=== PATIENT | female | born 1990 | race Caucasian/White ===

== ENCOUNTER 2018-01-27 15:20 | Observation (INO) ==
[2018-01-27 16:17] LABS: Bilirubin,Urine Negative (Negative); Blood,Urine Negative (Negative); Clarity,Urine Cloudy (Clear); Color,Urine Dark Yellow (Yellow); Glucose,Urine (UA) Normal (Normal); Ketones,Urine Negative (Negative); Leukocyte Esterase,Urine Negative (Negative); Nitrite,Urine Negative (Negative); PH,Urine 6.5 pH Units (5.0-8.0); Protein,Urine Trace mg/dL (Neg-Trace); Specific Gravity,Urine > 1.030 (1.010-1.025); Urobilinogen,Urine Normal (Normal)
[2018-01-27 16:21] LABS: Bacteria,Urine None Seen per hpf (None-Few); Hyaline Casts,Urine None Seen per lpf (None-Few); Squamous Epithelial Cell,Urine Many per lpf (None-Few)
[2018-01-27 16:39] LABS: Amphetamine Screen,Urine Negative ng/mL (Cutoff=1000); Barbiturate Screen,Urine Negative ng/mL (Cutoff=200); Benzodiazepines Screen,Urine Negative ng/mL (Cutoff=200); Cannabinoid Screen,Urine Positive ng/mL (Cutoff = 50); Cocaine Screen,Urine Negative ng/mL (Cutoff= 300); Opiate Screen,Urine Negative ng/mL (Cutoff=300); Phencyclidine Screen,Urine Negative ng/mL (Cutoff=25)
--- NOTE | 2018-01-27 16:50 | OB/GYN Progress Note ---
Date of Encounter: 01/27/18 Time of Encounter: 16:48 - Assessment and Plan (1) 23 weeks gestation of Current Visit: Yes Status: Acute (2) Abdominal cramping affecting , antepartum Current Visit: Yes Status: Acute Doppler for FHR UA - SG >1.030 Increase hydration Follow up with OB as scheduled OK to discharge home Subjective - Subjective Principal diagnosis: abdominal cramping in Interval history: Ms. Peterosn presents with c/o abdominal cramping since Saturday. She reports good FM and denies vb, lof. She also states she does not routinely drink water, having had only 2 glasses of water in the past week. She prefers coffee, tea, and gatorade. Last intercourse was many weeks ago. Antepartum ROS: new complaints, movement normal, contractions, no loss of fluid, no vaginal bleeding Objective - Vital Signs Vital Signs: Intake and Output 01/27/18 01/27/18 01/27/18 07:59 15:59 23:59 Other: Weight 70.4 kg Patient Weight 01/27/18 23:59 Weight 70.4 kg - Exam FHR: auscultation normal FHR comments: FHR ~135 No toco activity Auscultation: bilateral: normal Abdomen: Present: normal appearance, soft, gravid Uterus: Present: normal, firm - Labs Labs: Abnormal lab results Urine Clarity Cloudy (Clear) A 01/27/18 16:00 Ur Specific [place] > 1.030 (1.010-1.025) H 01/27/18 16:00 Urine Microscopic RBC 5-15 per hpf (0-3) H 01/27/18 16:00 Urine Microscopic WBC 3-5 per hpf (0-3) H 01/27/18 16:00 Ur Squamous Epith Cells Many per lpf (None-Few) H 01/27/18 16:00 U Marijuana (THC) Screen Positive ng/mL (Cutoff = 50) H 01/27/18 16:00
== END 2018-01-27 17:03 | disposition home or self-care (01) ==
LOC: 1NENULAB
PROVIDERS: ADMIT Obstetrics & Gynecology; ATTEND Obstetrics & Gynecology

== ENCOUNTER → 2018-04-08 14:30 | Observation (INO) ==
[2018-04-08 12:15] LABS: Bilirubin,Urine Negative (Negative); Blood,Urine Negative (Negative); Clarity,Urine Clear (Clear); Color,Urine Yellow (Yellow); Glucose,Urine (UA) Normal (Normal); Ketones,Urine Negative (Negative); Leukocyte Esterase,Urine Small (Negative); Nitrite,Urine Negative (Negative); PH,Urine 7.5 pH Units (5.0-8.0); Protein,Urine 30 mg/dL (Neg-Trace); Specific Gravity,Urine 1.023 (1.010-1.025); Urobilinogen,Urine Normal (Normal)
[2018-04-08 12:17] LABS: Bacteria,Urine Few per hpf (None-Few); Hyaline Casts,Urine None Seen per lpf (None-Few); Squamous Epithelial Cell,Urine Many per lpf (None-Few)
[2018-04-08 12:30] LABS: RBC,Urine 0-3 per hpf (0-3)
[2018-04-08 12:31] LABS: Basophils % 0.1 %; Eosinophils # 0.2 K/mcL (0.0-0.6); Eosinophils % 1.7 %; Hematocrit 35.1 % (35.3-44.9); Hemoglobin 12.3 g/dL (11.5-15.4); Immature Granulocytes % 0.6 % (0-4); Lymphocytes # 2.8 K/mcL (0.6-4.6); Lymphocytes % 22.6 %; Mean Corpuscular Hemoglobin 33.2 pg (28.0-33.3); Mean Corpuscular Volume 94.6 fL (83.0-100.0); Mean Platelet Volume 10.1 fL (9.4-12.4); Monocytes # 1.2 K/mcL (0.0-1.3); Monocytes % 9.9 %; Neutrophils # 8.1 K/mcL (1.6-8.9); Platelet Count 306 K/mcL (140-400); Red Blood Count 3.71 M/mcL (3.82-4.97); Red Cell Distribution Width 12.7 % (11.5-14.5); Segmented Neutrophils % 65.1 %
[2018-04-08 12:40] LABS: Protein/Creatinine Ratio,Urine 0.32 mg/mg (0.00-0.20)
[2018-04-08 13:06] LABS: Alanine Aminotransferase 16 Units/L (7-52); Aspartate Amino Transferase 19 Units/L (13-39); BUN/Creatinine Ratio 15 (6-26); Blood Urea Nitrogen 8 mg/dL (6-20); Lactate Dehydrogenase 110 Units/L (140-271); Uric Acid 4.4 mg/dL (2.3-7.6); eGFR For African Americans > 60 (> 60); eGFR For Non-African Americans > 60 (> 60)
--- NOTE | 2018-04-08 14:00 | OB/GYN Progress Note ---
Date of Encounter: 04/08/18 Time of Encounter: 13:54 - Assessment and Plan (1) Headache in , antepartum Current Visit: Yes Status: Acute FHR 135 Category 1 + accels - decels No ctxs per toco Cervical exam-closed/thick/high Urinalysis negative for UTI PC ratio 0.32 Other PIH labs normal IV hydration Fioricet po x 1 dose Zofran IV prn MgSO4 400 mg po Betamethasone 12 mg IM now and repeat in 24 hours Discharge home with 24 hour urine; PTL and pre eclampsia precautions. Encouraged oral rehydration at home. Follow up tomorrow- return 24 hour urine and get second Betamethasone injection Follow up with routine prenantal care and prn POC per consult with Dr Jones (2) 33 weeks gestation of Current Visit: Yes Status: Acute Subjective - Subjective Principal diagnosis: Headache Interval history: at 33 weeks and 5 days gestation presents to triage with c/o's [place] for past 4-5 days unrelieved with Tylenol. States she has a history of migraines that heave been less frequent and intense for past two years. Denies vaginal bleeding , loss of fluid, contractions and dysuria. States baby moving well. States she never drinks water and only drinks caffeinated beverages Antepartum ROS: new complaints, movement normal Objective - Exam FHR: auscultation normal, category 1 FHR comments: FHR 135, Category 1 Auscultation: bilateral: normal Abdomen: Present: normal appearance, soft, gravid Uterus: Present: normal. Absent: tenderness Cervical dilation: Closed Cervix effacement: Thick station: High - Labs Labs: Abnormal lab results WBC 12.4 K/mcL (4.3-11.1) H 04/08/18 11:44 RBC 3.71 M/mcL (3.82-4.97) L 04/08/18 11:44 Hct 35.1 % (35.3-44.9) L 04/08/18 11:44 Creatinine 0.52 mg/dL (0.60-1.20) L 04/08/18 11:44 Lactate Dehydrogenase 110 Units/L (140-271) L 04/08/18 11:44 Urine Protein 30 mg/dL (Neg-Trace) H 04/08/18 12:00 Ur Leukocyte Esterase Small (Negative) H 04/08/18 12:00 Urine Microscopic WBC 5-15 per hpf (0-3) H 04/08/18 12:00 Ur Squamous Epith Cells Many per lpf (None-Few) H 04/08/18 12:00 Ur Culture Indicated? NO. (NO) A 04/08/18 12:00 Protein/Creatinin Ratio 0.32 mg/mg (0.00-0.20) H 04/08/18 12:00 Urine Total Protein 39 mg/dL (1-14) H 04/08/18 12:00
[~2018-04-08 14:30] MED LIST: Acetaminophen/Butalbital/CaffeineTABLET PO PRN; Betamethasone Acet/SodPhos 6 MG/ML MDV IM SCH; Magnesium Oxide 400 MG TABLET PO SCH; Ondansetron 4 MG/2 ML VIAL IVP PRN; Prenatal Vit/FA 1 EACH TABLET PO SCH; Ringers Solution, Lactated 1,000 ML IVC SCH; Ringers Solution, Lactated 1,000 ML ONE
[2018-04-08 14:31] LABS: Amphetamine Screen,Urine Negative ng/mL (Cutoff=1000); Barbiturate Screen,Urine Negative ng/mL (Cutoff=200); Benzodiazepines Screen,Urine Negative ng/mL (Cutoff=200); Cannabinoid Screen,Urine Positive ng/mL (Cutoff = 50); Cocaine Screen,Urine Negative ng/mL (Cutoff= 300); Opiate Screen,Urine Negative ng/mL (Cutoff=300); Phencyclidine Screen,Urine Negative ng/mL (Cutoff=25)
== END | disposition home or self-care (01) ==
LOC: 1NENULAB
PROVIDERS: ADMIT Student in an Organized Health Care Education/Training Program; ATTEND Student in an Organized Health Care Education/Training Program